=== PATIENT | male | born 1990 | race Caucasian/White ===

== ENCOUNTER → 2024-07-26 12:41 | Outpatient (REF) | payer OTHER, SELFPAY ==
[2024-07-26 15:15] LABS: Vitamin B12 450 pg/mL (180-914); Vitamin D,25 Hydroxy 28.2 ng/mL (30-100)
[2024-07-31 05:07] LABS: G6PD Quant Test 273 (127-427); Red Blood Cell Count Test/G6PD 5.59 x10E6/uL (4.14-5.80)
== END ==
LOC: LABSPEC 12:41
PROVIDERS: Referring Provider Nurse Practitioner Family; Visit Provider Nurse Practitioner Family
DX: A69.20 Lyme disease, unspecified (principal); M25.59 Pain in other specified joint; R53.82 Chronic fatigue, unspecified; G31.84 Mild cognitive impairment of uncertain or unknown etiology; N50.819 Testicular pain, unspecified
CPT/HCPCS: 82306; 82607; 82746; 82955

== ENCOUNTER → 2025-03-13 | Outpatient (CLI) | payer OTHER, SELFPAY ==
[2025-03-13 19:13] LABS: Hematocrit 50.0 % (40-54); Hemoglobin 16.8 g/dL (13.0-16.5); Immature Granulocytes Count 0.020 X10^3/uL (0.0-0.0); Mean Corp Hgb Conc 33.6 g/dL (32-36); Mean Corpuscular Volume 96.0 fL (80-94); Mean Platelet Vol. 10.6 fl (6.2-12.0); NRBC Flagged by Analyzer 0 % (0-5); Platelet Count 251 K/mm3 (150-450); RBC Distribution Width CV 13.2 % (11.6-14.6); RBC Distribution Width SD 46.7 fl (35.1-43.9); Red Blood Count 5.21 M/mm3 (4.6-6.2); White Blood Count 6.5 K/mm3 (4.4-11.0)
[2025-03-13 19:50] LABS: AST(SGOT) 28 U/L (<=37); Alanine Aminotransfer ALT/SGPT 45 U/L (<=46); Albumin, Serum 4.7 g/dL (3.5-5.0); Alkaline Phosphatase 63 U/L (40-129); Anion Gap 12 (5-15); BUN 16 mg/dL (4-19); BUN/Creat Ratio 16.4 RATIO (10-20); Calcium,Total 9.6 mg/dL (7.6-11.0); Carbon Dioxide 27.6 mmol/L (21.0-32.0); Chloride 101 mmol/L (98-108); Free T3 3.4 pg/mL (2.18-3.98); Globulin 3.1 g/dL (2.2-4.2); Glucose 82 mg/dL (70-99); Potassium 4.3 mmol/L (3.3-5.1); Vitamin B12 519 pg/mL (180-914); Vitamin D,25 Hydroxy 30.6 ng/mL (30-100)
[2025-03-13 19:51] LABS: FOLATES,SERUM (FOLIC ACID) 5.42 ng/mL (4.60-34.80)
[2025-03-13 19:52] LABS: CRP < 3.00 mg/L (0.0-3.0)
[2025-03-15 08:08] LABS: HOMOCYSTEINE 14.2 umol/L (0.0-14.5)
[2025-03-23 03:06] LABS: Immunoglobulin A 202 mg/dL (90-386); Immunoglobulin G 1372 mg/dL (603-1613); Immunoglobulin M 81 mg/dL (20-172)
== END | disposition home or self-care (01) ==
LOC: LABSPEC 16:15
PROVIDERS: Visit Provider Nurse Practitioner Family
DX: M25.59 Pain in other specified joint (principal); A69.20 Lyme disease, unspecified; R53.82 Chronic fatigue, unspecified; G31.84 Mild cognitive impairment of uncertain or unknown etiology; N50.819 Testicular pain, unspecified; Z68.35 Body mass index [BMI] 35.0-35.9, adult; E03.9 Hypothyroidism, unspecified
CPT/HCPCS: 80053; 82306; 82607; 82746; 82784; 82785; 83090; 84432; 84439; 84443; 84481; 85025; 85652; 86140; 86376; 86800